=== PATIENT | female | born 1945 | race Caucasian/White ===

== ENCOUNTER 2018-03-17 14:04 | Outpatient (CLI) | payer MEDICARE, OTHER | END 2018-03-17 14:05 | disposition home or self-care (01) | LOC: BICMAMMO 14:04 | PROVIDERS: ATTEND Family Medicine | DX: Z12.31 Encounter for screening mammogram for malignant neoplasm of breast (principal) | CPT/HCPCS: 77063; 77067 ==

== ENCOUNTER 2018-04-10 08:56 | Outpatient (CLI) | payer MEDICARE, OTHER ==
--- NOTE | 2018-04-10 11:27 | BD ---
DEXA BONE DENSITY SCAN: Date: 04/10/18 COMPARISON: None. HISTORY: Postmenopausal female undergoing screening for osteoporosis. FINDINGS: Lumbar Spine BMD (g/cm2) L1 0.859 T-Score -1.2 L2 0.885 T-Score -1.3 L3 0.782 T-Score -2.7 L4 0.661 T-Score -3.6 L1-L4 0.794 T-Score -2.3 Femoral Neck 0.678 T-Score -1.5 Total Femur 0.904 T-Score -0.3 FRAX-WHO fracture risk assessment tool reports a 10 year fracture risk at 9.5% for major osteoporotic fracture and 1.5% for hip fracture in an untreated patient. IMPRESSION: Osteopenia within the femoral neck and lumbar spine correlating with a moderately increased risk for fracture. POS: SINDI
== END 2018-04-10 08:57 | disposition home or self-care (01) ==
LOC: BICMAMMO 08:56
PROVIDERS: ATTEND Family Medicine
DX: Z13.820 Encounter for screening for osteoporosis (principal); M85.89 Other specified disorders of bone density and structure, multiple sites; Z78.0 Asymptomatic menopausal state
CPT/HCPCS: 77080

== ENCOUNTER 2019-11-29 16:08 | Observation (INO) | payer MEDICARE, OTHER ==
[2019-11-29] MEDS ORDERED: Aspirin Chewable 81 MG TAB ONE (16:36)
[2019-11-29 16:43] LABS: #Basophils 0.1 thou/uL (0.0-0.2); #Eosinphils 0.3 thou/uL (0.0-0.7); #Lymphocytes 3.3 thou/uL (1.20-3.40); #Monocytes 1.1 thou/uL (0.11-0.59); #Neutrophils 4.5 thou/uL (1.40-6.50); %Basophils 1.1 % (0.0-1.0); %Eosinophils 3.8 % (0.0-10.0); %Lymphocytes 35.7 % (21.0-51.0); %Monocytes 11.4 % (0.0-10.0); Hemoglobin 15.9 g/dL (12.0-16.0); Mean Corpuscular HGB CONC 32.4 g/dL (32.0-36.0); Mean Corpuscular Hemoglobin 29.7 pg (27.0-31.0); Mean Corpuscular Volume 91.8 fL (78.0-98.0); Mean Platelet Volume 6.6 fL (7.4-10.4); Platelet Count 290 thou/uL (130-400); RBC Distribution Width 11.1 % (11.5-14.5); Red Blood Cell (RBC) Count 5.36 mill/uL (4.20-5.40); White Blood Cell (WBC) Count 9.3 thou/uL (4.8-10.8)
--- NOTE | 2019-11-29 17:00 | RAD ---
CHEST ONE VIEW: 11/29/19 INDICATION: Chest pain. COMPARISON: None. FINDINGS: The lungs are clear. Heart size is normal. No acute osseous abnormality is evident. IMPRESSION: No acute cardiopulmonary abnormality. POS: BH
[2019-11-29 17:04] LABS: ALT (SGPT) 20 U/L (8-55); AST (SGOT) 17 U/L (5-34); Albumin 4.2 g/dL (3.4-4.8); Alkaline Phosphatase 98 U/L (40-110); Anion Gap 14 mmol/L (10-20); BUN (Urea Nitrogen) 18 mg/dL (9.8-20.1); Bilirubin, Total 0.5 mg/dL (0.2-1.2); Calc. Creatinine Clearance 0 mL/min (70-130); Calcium 9.8 mg/dL (7.8-10.44); Carbon Dioxide 27 mmol/L (23-31); Chloride 104 mmol/L (98-107); Estimated GFR-MDRD 72; Globulin 3.2 g/dL (2.4-3.5); Glucose 97 mg/dL (83-110); Potassium 4.5 mmol/L (3.5-5.1); Protein, Total 7.4 g/dL (6.0-8.3); Sodium 140 mmol/L (136-145)
[2019-11-29 20:29] LABS: Troponin I Less than 0.010 ng/mL (< 0.028)
[2019-11-29] MEDS ORDERED: Acetaminophen 325 MG TAB PO PRN (20:55)
[2019-11-29] MEDS ORDERED: Acetaminophen 650 MG Suppository PR PRN (20:55)
[2019-11-29] MEDS ORDERED: Nitroglycerin 0.4 MG TAB (25 Tab Bottle) PO PRN (21:07)
[2019-11-29 22:53] VITALS: BMI 43.7
[2019-11-29] MEDS: Famotidine/PF 20 mg/2ml Vial SLOW IVP SCH (22:55)
--- NOTE | 2019-11-29 23:03 | PDOC.HHP ---
Hospitalist HPI - History of Present Illness Chest pain History of Present Illness: Patient presents due to having an episode of discomfort in her chest this morning while washing dishes. She states it was in the center of her chest, describing it as a burning sensation on the inside. States it was non-radiating , and was a 1/10 in severity. Has had intermittent discomfort for the last 10 days and has felt generally unwell. She opted to come in for further evaluation and denies having any recurrent pain. Was prompted by her PCP to come in. She states she took 2 baby aspirin before coming to the ED. At present she denies having any pain. Has not had any fevers or chills. No n/ v. Otherwise has felt well except general malaise. Known to Dr. Pham and sees him regularly. Has had a stress test in the past but its been over a year. ED Course: EKG done in the ED showed NSR, HR 74, RBBB, no ST changes or T wave abnormalities. She was given 162 mg of Aspirin. CXR done showed showed no acute changes. Trop negative x 2. Hospitalist ROS - Review of Systems Constitutional: reports: malaise. denies: fever, chills, sweats, weakness, other Eyes: denies: pain, vision change, conjunctivae inflammation, eyelid inflammation, redness, other ENT: denies: ear pain, ear discharge, nose pain, nose discharge, nose congestion , mouth pain, mouth swelling, throat pain, throat swelling, other Respiratory: denies: cough, dry, shortness of breath, hemoptysis, SOB with excertion, pleuritic pain, sputum, wheezing, other Cardiovascular: reports: chest pain. denies: palpitations, orthopnea, paroxysmal noc. dyspnea, edema, light headedness, other Gastrointestinal: denies: nausea, vomiting, abdominal pain, diarrhea, constipation, melena, hematochezia, other Genitourinary: denies: dysuria, frequency, incontinence, hematuria, retention, other Musculoskeletal: denies: neck pain, shoulder pain, arm pain, back pain, hand pain, leg pain, foot pain, other Skin: denies: rash, lesions, lena, bruising, other Neurological: denies: weakness, numbness, incoordination, change in speech, confusion, seizures, other - Medication Medications: Active Medications Generic Name Dose Route Start Last Admin Trade Name Freq PRN Reason Stop Dose Admin Famotidine 20 mg 11/29/19 21:00 11/29/19 22:55 Pepcid SLOW IVP 20 mg Q12HR KASEY Administration ALLERGIES: Sulfa, Codeine. HOME MEDICATIONS: lisinopril Tami November 29, 2019 16:[address] K[place]lyn tablet : Strength - 5 mg : ORAL Patient Dose: 5 mg Oral once a day. atorvastatin TueNovember 29, 2019 16:[address] [place]lyn tablet : Strength - 40 mg : ORAL Patient Dose: 40 mg Oral once a day. PARoxetine HCl TueNovember 29, 2019 16:[address] [place]lyn tablet : Strength - 20 mg : ORAL Patient Dose: 20 mg Oral once a day (in the morning). aspirin oral TueNovember 29, 2019 16:[address] [place] tablet : Strength - 81 mg : ORAL Patient Dose: 81 mg Oral once a day (in the morning). timolol maleate ophthalmic TueNovember 29, 2019 16:[address] [place] drops : Strength - 0.5 % : OPHTHALMIC (EYE) Patient Dose: 1 Drps Eyes Both 2 times a day. Vitamin D3 TueNovember 29, 2019 16:[address] [place]aitlyn tablet : Strength - 5,000 unit : ORAL Patient Dose: 1 tab(s) Oral once a day. B Complex oral TueNovember 29, 2019 16:[address] [place] capsule : ORAL Patient Dose: 1 cap(s) Oral once a day. cetirizine TueNovember 29, 2019 16:[address] [place]ait[place] tablet : Strength - 10 mg : ORAL Patient Dose: 1 tab(s) Oral once a day. multivitamin oral TueNovember 29, 2019 16:[address] [place] capsule : ORAL Patient Dose: 1 cap(s) Oral once a day. Hospitalist History - Past Medical History Cardiac: reports: HTN, Hyperlipidemia, Other (Valve stenosis) Psych: reports: Depression - Past Surgical History Past Surgical History: reports: Cholecystectomy, Tonsillectomy - Family History Family History: reports: no pertinent history - Social History Smoking Status: Never smoker Alcohol: reports: None Drugs: reports: none Living Situation: With Family Activity level: independent ambulation - Exam General Appearance: NAD Eye: PERRL, anicteric sclera ENT: normocephalic atraumatic, no oropharyngeal lesions Neck: supple, symmetric, no lymphadenopathy Heart: RRR, no murmur, no gallops, no rubs, normal peripheral pulses Respiratory: CTAB, no wheezes, no rales, normal chest expansion Gastrointestinal: soft, non-tender, non-distended, normal bowel sounds Extremities: no edema Skin: normal turgor, no lesions, no rashes Neurological: cranial nerve grossly intact, normal sensation to touch Musculoskeletal: normal tone, normal strength Psychiatric: normal affect, normal behavior, A&O x 3 Hospitalist Results - Labs Result Diagrams: 11/29/19 16:34 11/29/19 16:34 Lab results: WBC 9.3 thou/uL (4.8-10.8) 11/29/19 16:34 Hgb 15.9 g/dL (12.0-16.0) 11/29/19 16:34 Hct 49.2 % (36.0-47.0) H 11/29/19 16:34 MCV 91.8 fL (78.0-98.0) 11/29/19 16:34 Plt Count 290 thou/uL (130-400) 11/29/19 16:34 Neutrophils % 48.0 % (42.0-75.0) 11/29/19 16:34 Sodium 140 mmol/L (136-145) 11/29/19 16:34 Potassium 4.5 mmol/L (3.5-5.1) 11/29/19 16:34 Chloride 104 mmol/L (98-107) 11/29/19 16:34 Carbon Dioxide 27 mmol/L (23-31) 11/29/19 16:34 BUN 18 mg/dL (9.8-20.1) 11/29/19 16:34 Creatinine 0.78 mg/dL (0.6-1.1) 11/29/19 16:34 Glucose 97 mg/dL (83-110) 11/29/19 16:34 Calcium 9.8 mg/dL (7.8-10.44) 11/29/19 16:34 Total Bilirubin 0.5 mg/dL (0.2-1.2) 11/29/19 16:34 AST 17 U/L (5-34) 11/29/19 16:34 ALT 20 U/L (8-55) 11/29/19 16:34 Alkaline Phosphatase 98 U/L (40-110) 11/29/19 16:34 Troponin I Less than 0.010 ng/mL (< 0.028) 11/29/19 19:53 Serum Total Protein 7.4 g/dL (6.0-8.3) 11/29/19 16:34 Albumin 4.2 g/dL (3.4-4.8) 11/29/19 16:34 Hospitalist H&P A/P - Problem (1) Chest pain Code(s): R07.9 - CHEST PAIN, UNSPECIFIED Status: Resolved (2) History of heart valve disorder Code(s): Z86.79 - PERSONAL HISTORY OF OTHER DISEASES OF THE CIRCULATORY SYSTEM Status: Chronic Assessment and Plan: Possibly has a history of aortic valve stenosis, no echo on file to confirm but has 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 (3) Hypertension Code(s): I10 - ESSENTIAL (PRIMARY) HYPERTENSION Status: Chronic (4) Hyperlipidemia Code(s): E78.5 - HYPERLIPIDEMIA, UNSPECIFIED Status: Chronic (5) Obesity Code(s): E66.9 - OBESITY, UNSPECIFIED Status: Chronic - Plan Plan: Continue to trend troponins. Cardiac monitoring. Cardiology consult as per discussion with patient. Dr. Pham to decide if repeat Echo indicated, unclear if last echo was done within the last year. Monitor BP. Reconcile home medications once verified. Gentle IV hydration. NPO at midnight. Code Status: Full Surrogate decision maker is her son who she lives with: Fernando Kim Discussed with Dr. Vitale who agrees with plan as above.
[2019-11-29 23:05] LABS: Troponin I Less than 0.010 ng/mL (< 0.028)
[2019-11-30 04:22] LABS: #Basophils 0.1 thou/uL (0.0-0.2); #Eosinphils 0.4 thou/uL (0.0-0.7); #Lymphocytes 2.9 thou/uL (1.20-3.40); #Monocytes 0.7 thou/uL (0.11-0.59); #Neutrophils 4.2 thou/uL (1.40-6.50); %Basophils 0.9 % (0.0-1.0); %Eosinophils 4.6 % (0.0-10.0); %Lymphocytes 35.1 % (21.0-51.0); %Monocytes 8.3 % (0.0-10.0); %Neutrophils 51.1 % (42.0-75.0); Hemoglobin 15.1 g/dL (12.0-16.0); Mean Corpuscular HGB CONC 32.3 g/dL (32.0-36.0); Mean Corpuscular Hemoglobin 29.7 pg (27.0-31.0); Mean Corpuscular Volume 91.8 fL (78.0-98.0); Mean Platelet Volume 6.7 fL (7.4-10.4); Platelet Count 264 thou/uL (130-400); RBC Distribution Width 11.1 % (11.5-14.5); Red Blood Cell (RBC) Count 5.09 mill/uL (4.20-5.40); White Blood Cell (WBC) Count 8.3 thou/uL (4.8-10.8)
[2019-11-30 04:44] LABS: Anion Gap 12 mmol/L (10-20); BUN (Urea Nitrogen) 14 mg/dL (9.8-20.1); Calc. Creatinine Clearance 134 mL/min (70-130); Calcium 9.1 mg/dL (7.8-10.44); Carbon Dioxide 26 mmol/L (23-31); Cardiac Risk 4.1 (Less than 4.5); Chloride 104 mmol/L (98-107); Cholesterol 162 mg/dl (< 200 Desired); Estimated GFR-MDRD 86; Glucose 104 mg/dL (83-110); HDL Cholesterol 40 mg/dL (>60 Neg Risk); LDL Cholesterol, Calculated 96 mg/dL; Potassium 3.9 mmol/L (3.5-5.1); Sodium 138 mmol/L (136-145); Triglycerides 130 mg/dL (Less than 150)
[2019-11-30] MEDS: Famotidine/PF 20 mg/2ml Vial SLOW IVP SCH ×2 (09:17→20:43)
[2019-11-30] MEDS: Aspirin 81 mg Enteric Coated Tablet PO SCH (15:38)
--- NOTE | 2019-11-30 17:24 | PDOC.HOSPP ---
- Subjective Encounter Date: 11/30/19 Encounter Time: 17:20 Subjective: f/u for CP with negative enzymes. Planning Cardiolite stress test in am. No current complaints. - Objective Vital Signs & Weight: Vital Signs (12 hours) Temp Pulse Resp BP Pulse Ox 11/30/19 15:40 98.7 F 75 18 109/66 95 11/30/19 11:35 98.1 F 73 15 126/64 94 L 11/30/19 07:25 98.6 F 71 18 128/60 95 Weight Weight 254 lb 14.4 oz I&O: 11/29/19 11/30/19 12/01/19 06:59 06:59 06:59 Intake Total 480 Output Total 350 Balance 130 Result Diagrams: 11/30/19 04:04 11/30/19 04:04 Additional Labs: Laboratory Tests 11/29/19 11/29/19 11/29/19 16:34 19:53 22:30 Troponin I Less than 0.010 Less than 0.010 Less than 0.010 Triglycerides Cholesterol LDL Cholesterol, Calc HDL Cholesterol TSH 3rd Generation 11/30/19 11/30/19 04:04 04:04 Troponin I Triglycerides 130 Cholesterol 162 LDL Cholesterol, Calc 96 HDL Cholesterol 40 TSH 3rd Generation 1.7022 Radiology Reviewed by me: Yes (PCXR - no acute process) EKG Reviewed by me: Yes (Tele - SR) Hospitalist ROS - Medication Medications: Active Medications Generic Name Dose Route Start Last Admin Trade Name Freq PRN Reason Stop Dose Admin Aspirin 81 mg 11/30/19 09:00 11/30/19 15:38 Ecotrin PO 81 mg DAILY KASEY Administration Famotidine 20 mg 11/29/19 21:00 11/30/19 09:17 Pepcid SLOW IVP 20 mg Q12HR KASEY Administration Sodium Chloride 10 ml 11/30/19 09:00 11/30/19 09:17 Flush - Normal Saline IVF 10 ml Q12HR KASEY Administration - Exam General Appearance: NAD, awake alert Eye: PERRL, anicteric sclera ENT: normocephalic atraumatic, no oropharyngeal lesions Neck: supple, symmetric, no JVD, no thyromegaly, no lymphadenopathy Heart: RRR, no gallops, no rubs, normal peripheral pulses Heart - other findings: S1, S2 Respiratory: CTAB, no wheezes, no rales, no ronchi, normal chest expansion Gastrointestinal: soft, non-tender, non-distended, normal bowel sounds, no palpable masses Extremities: no cyanosis, no clubbing, no edema Skin: normal turgor, no lesions Neurological: cranial nerve grossly intact, no new deficit Musculoskeletal: normal tone, normal strength, no muscle wasting Psychiatric: normal affect, A&O x 3 Hosp A/P (1) Chest pain Code(s): R07.9 - CHEST PAIN, UNSPECIFIED Status: Resolved Plan: Plan for Cardiolite Stress test in am, continue supprotive mgmt, ASA/ Nitroglycerin (2) Hypertension Code(s): I10 - ESSENTIAL (PRIMARY) HYPERTENSION Status: Chronic Qualifiers: Hypertension type: essential hypertension Qualified Code(s): I10 - Essential (primary) hypertension Plan: Resume home BP regimen and monitor clinically (3) Hyperlipidemia Code(s): E78.5 - HYPERLIPIDEMIA, UNSPECIFIED Status: Chronic Plan: Resume Lipitor 40mg HS (4) Obesity Code(s): E66.9 - OBESITY, UNSPECIFIED Status: Chronic - Plan out of bed/ambulate, DVT proph w/SCDs Stable currently Cardiolite stress test in am Continue ASA Continue Lipitor Resume home BP regimen 2D echo pending Appreciate Cardiology assistance Likely home in 24h
[2019-11-30] MEDS ORDERED: Atorvastatin Calcium 40 MG TAB PO SCH (21:00)
[2019-11-30] MEDS: Timolol 0.5% Ophth Soln 5 ml Bottle EA EYE SCH (21:28)
--- NOTE | 2019-11-30 22:14 | CON ---
DATE OF CONSULTATION: HISTORY OF PRESENT ILLNESS: Rae Kim is a 74-year-old white female, who has had multiple episodes of chest discomfort over the last 10 days. She states that the first 2 episodes occurred during the night and would awaken her. She did have substernal chest pressure that lasted approximately 30 minutes. She had other episodes without significant exertion. Last night, she then had an episode that occurred while she was washing dishes and she decided to come to the hospital to get this evaluated. I first evaluated her in June 2016 for a heart murmur. She was found to have very mild aortic stenosis and is basically checked every 2 years. Her last echocardiogram was in July 2018. Ejection fraction was 55% to 60% with mild left atrial enlargement, mitral annular calcification, mild mitral regurgitation, evidence for diastolic dysfunction, mild aortic stenosis with peak gradient of 17 mm, mean gradient of 10 mm, and mild tricuspid regurgitation. PAST MEDICAL HISTORY: Hypertension, hypercholesterolemia, obesity. MEDICATIONS: 1. Aspirin 81 daily. 2. Atorvastatin 40 at bedtime. 3. Zyrtec 10 mg b.i.d. 4. Lisinopril 5 mg daily. 5. Paxil 20 mg daily. 6. Timolol eye drops. ALLERGIES: CODEINE, PENICILLIN AND SULFA. PAST SURGICAL HISTORY: Cholecystectomy, removal of left urolithiasis, tonsillectomy. SOCIAL HISTORY: She smoked, but stopped in 1994. She rarely drinks. REVIEW OF SYSTEMS: A 10-point review of systems unremarkable. PHYSICAL EXAMINATION: VITAL SIGNS: Blood pressure 126/64, pulse 73. HEENT: PERRL. NECK: Supple. CHEST: Clear. CARDIAC: S1 and S2 normal without any S3 or S4. There is a 2/6 systolic ejection murmur. Carotid upstrokes normal without bruits. ABDOMEN: Obese, normal bowel sounds. No tenderness or organomegaly. EXTREMITIES: Revealed no clubbing, cyanosis, or edema. NEUROLOGIC: Grossly intact. SKIN: Warm and dry. LABORATORY DATA: EKG reveals normal sinus rhythm with right bundle-branch block , which is an old finding. Cardiac enzymes are normal. CBC is unremarkable. Sodium 138, potassium 3.9, chloride 104, carbon dioxide 26, BUN 14, creatinine 0.67, cholesterol 162, triglycerides 130, HDL 40, LDL 96. TSH is normal. IMPRESSION: 1. Atypical chest discomfort. Historically, this sounds probably more gastrointestinal in nature. She has been placed on IV Pepcid b.i.d. 2. Aortic stenosis, which is very mild. Last echocardiogram was in July 2018. I would be doubtful that she would progress from very mild aortic stenosis to aortic stenosis causing pain at rest over 16 months. 3. Hypertension. 4. Hypercholesterolemia, under good control. 5. Former smoker. 6. History of depression. PLAN: Echocardiogram will be performed to reassess left ventricular function and the status of aortic valve. Adenosine Cardiolite testing will be performed. Job ID: [id number] [facility]
[2019-12-01] MEDS ORDERED: Stress 600 With Zinc 1 TAB PO SCH (09:00)
[2019-12-01] MEDS ORDERED: Lisinopril 5 MG TAB PO SCH (09:00)
[2019-12-01] MEDS ORDERED: PARoxetine 20 MG TAB PO SCH (09:00)
[2019-12-01] MEDS ORDERED: Loratadine 10 MG TAB PO SCH (09:00)
[2019-12-01] MEDS ORDERED: Multivitamin W/ Minerals 1 TAB PO SCH (09:00)
--- NOTE | 2019-12-01 13:17 | PDOC.CPN ---
- Subjective Date: 12/01/19 Time: 13:20 Interval history: The pt seen and examined. No overnight events. No cardiac complaints. - Objective Allergies/Adverse Reactions: Allergies Allergy/AdvReac Type Severity Reaction Status Date / Time codeine Allergy Verified 11/30/19 09:15 Penicillins Allergy Verified 11/30/19 09:16 Sulfa (Sulfonamide Allergy Rash Verified 11/30/19 09:17 Antibiotics) Visit Medications: Current Medications Acetaminophen (Tylenol) 650 mg PO Q4H PRN PRN Reason: Headache/Fever/Mild Pain (1-3) Acetaminophen (Tylenol) 650 mg [place] Q4H PRN PRN Reason: Headache/Fever/Mild Pain (1-3) Aspirin (Ecotrin) 81 mg PO DAILY [facility] Last Admin: 11/30/19 15:38 Dose: 81 mg Atorvastatin Calcium (Lipitor) 40 mg PO HS [facility] Last Admin: 11/30/19 20:43 Dose: 40 mg Cholecalciferol (Vitamin D3) 10,000 units PO DAILY [facility] Famotidine (Pepcid) 20 mg SLOW IVP Q12HR [facility] Last Admin: 11/30/19 20:43 Dose: 20 mg Iron/Minerals/Multivitamins (Theragran M) 1 tab PO DAILY [facility] Lisinopril (Zestril) 5 mg PO DAILY KASEY Loratadine (Claritin) 10 mg PO QAM [facility] Multivitamins/Zinc (Stress 600 With Zinc) 1 tab PO DAILY [facility] Nitroglycerin (Nitrostat) 0.4 mg PO Q5MIN PRN PRN Reason: Chest Pain Paroxetine HCl (Paxil) 20 mg PO DAILY [facility] Sodium Chloride (Flush - Normal Saline) 10 ml IVF Q12HR PRN PRN Reason: Saline Flush Sodium Chloride (Flush - Normal Saline) 10 ml IVF Q12HR [facility] Last Admin: 11/30/19 20:48 Dose: 10 ml Sodium Chloride (Flush - Normal Saline) 10 ml IVF PRN PRN PRN Reason: Saline Flush Timolol Maleate (Timoptic 0.5% Ophth Soln) 1 drop EA EYE BID [facility] Last Admin: 11/30/19 21:28 Dose: 1 drop Vital Signs & Weight: Vital Signs Temp Pulse Resp BP Pulse Ox 12/01/19 08:50 98.9 F 70 22 H 147/63 H 95 12/01/19 03:47 97.7 F 65 20 117/56 L 94 L Weight 256 lb 3.2 oz - Physical Exam General: alert & oriented x3 HEENT: mucus membranes moist Neck: supple neck Cardiac: regular rate and rhythm, S1/S2 Lungs: clear to auscultation Neuro: cranial nerve 2-12 intact - Labs Result Diagrams: 11/30/19 04:04 11/30/19 04:04 Troponin/CKMB Troponin I Less than 0.010 ng/mL (< 0.028) 11/29/19 22:30 - Telemetry Sinus rhythms and dysrhythmias: sinus rhythm - Assessment/Plan Assessment/Plan: 1. Chest pain in adult - asymptomatic this AM; waiting for stress test result 2. HTN - stable 3. HLD 4. mild 5. Obese 6. Ex-smoker MAR reviewed * Echo in 07/2018 with EF 55-60%, grade I dd, mild LAE, mild MR and TR, mild with peak gradient 17mm. * From Cardiac standpoint, the pt may be d/casa home if her Stress test and Echo show WNLs. * the pt will f/u with Dr Pham's office in 2 wks Pt. seen and eval. by me. I agree with the A/P by the [employer] INFORMATION CLERK. Stress test is negative for ischemia. Stable for d/c. claudia
--- NOTE | 2019-12-01 14:05 | NM ---
EXAM: Cardiac SPECT HISTORY: Chest pain, hypertension, hypercholesterolemia PROTOCOL: Stress only, single isotope TYPE OF STRESS: Pharmacologic stress with adenosine was monitored and interpreted by Jennifer Grover nurse practitioner RADIOPHARMACEUTICAL: 30 mCi technetium 99m-sestamibi injected intravenously FINDINGS: Homogeneous tracer distribution is seen in the myocardial segments on the post stress images. Gated SPECT LVEF: 76% Wall motion exam: Normal IMPRESSION: Normal post stress myocardial perfusion scan.
[2019-12-01] MEDS: Aspirin 81 mg Enteric Coated Tablet PO SCH (14:35)
[2019-12-01] MEDS: Famotidine/PF 20 mg/2ml Vial SLOW IVP SCH (14:38)
[2019-12-01] MEDS: Timolol 0.5% Ophth Soln 5 ml Bottle EA EYE SCH (14:39)
[2019-12-01 15:45] VITALS: BP 144/67; TEMP 98.1
--- NOTE | 2019-12-01 20:32 | DIS ---
DATE OF ADMISSION: 11/29/2019 DATE OF DISCHARGE: 12/01/2019 DISCHARGE DIAGNOSES: As of the followin. Chest pain. 2. Hypertension. 3. Hyperlipidemia. 4. Obesity. HOSPITAL COURSE: The patient is a 74-year-old female who initially presented to the hospital on 11/28, with complaints of chest pain. At this time, she was seen by Cardiology. She underwent a stress test and echocardiogram. Her echocardiogram indicated a mild AV sclerosis, mild and tricuspid regurgitation with an EF of 60% to 65%, She also had a nuclear stress test, which indicated an EF of 76% with a normal post-stress myocardial perfusion scan. She was then discharged home. HOME MEDICATIONS: Were not changed. They will continue. 1. She is on Zyrtec 10 mg twice daily. 2. Vitamin units daily. 3. Lisinopril 5 mg daily. 4. Vitamin daily. 5. Paxil 20 mg daily. 6. Aspirin 81 mg daily. 7. Atorvastatin 40 mg daily. PHYSICAL EXAMINATION: VITAL SIGNS: Temperature 98.1, 70, 80, 95% on room air, 144/67. GENERAL: She is awake, alert, oriented x3, is in no apparent distress. CV: S1, S2 present. No murmurs, rubs, or gallops. Again, she will be discharged home, follow up with primary. Job ID: [id number]
== END 2019-12-01 16:20 | disposition home or self-care (01) ==
LOC: ERS 16:08 → 2NO 19:06
PROVIDERS: ADMIT Internal Medicine; ATTEND Internal Medicine
DX: R07.89 Other chest pain (principal); I10 Essential (primary) hypertension; E78.5 Hyperlipidemia, unspecified; F32.9 Major depressive disorder, single episode, unspecified; E66.9 Obesity, unspecified; I38 Endocarditis, valve unspecified; Z68.41 Body mass index [BMI] 40.0-44.9, adult; Z79.82 Long term (current) use of aspirin; Z79.899 Other long term (current) drug therapy; Z86.79 Personal history of other diseases of the circulatory system; Z87.891 Personal history of nicotine dependence; Z88.0 Allergy status to penicillin; Z88.2 Allergy status to sulfonamides; Z88.5 Allergy status to narcotic agent
CPT/HCPCS: 71045; 78452; 80048; 80053; 80061; 84443; 84484 ×2; 85025 ×2; 93005; 93017; 93306; 94760; 96374; 96376 ×2; 99285; A9500; G0378 ×4; 36415; J0153; S0028